=== PATIENT | female | born 1960 | race Caucasian/White ===

== ENCOUNTER → 2016-12-22 | Day surgery (SDC) | payer BC ==
[~2016-12-22] MED LIST: Lactated Ringers 1,000 ML IV SCH; Propofol 200 MG/20 ML SDV IV ONE
[2016-12-22 12:35] VITALS: BP 146/87
--- NOTE | 2016-12-25 07:53 | OR ---
DATE OF OPERATION: 12/22/2016 PREOPERATIVE DIAGNOSIS: HISTORY OF POLYPS. POSTOPERATIVE DIAGNOSIS: HISTORY OF POLYPS. SURGEON: Jeffrey Sequeira MD PROCEDURE: FULL-LENGTH COLONOSCOPY WITH POLYP REMOVAL X1. 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 BODY AFTER ALLERGIES: COMPLICATIONS: None. SPECIMEN: Small rectal hyperplastic polyp. FINDINGS: 1. Full-length colonoscopy. 2. Rectal polyp, hyperplastic. RECOMMENDATIONS: Follow up colonoscopy in 10 years. INDICATIONS: The patient has had a prior history of polyps. She had a followup 5 years ago and had a polyp removed. She is due for routine follow up at this time. DESCRIPTION OF PROCEDURE: The patient was prepped and draped, placed in the left lateral decubitus position. A lubricated Olympus colonoscope was inserted and easily advanced to the cecum. Direct visualization of the ileocecal valve and appendiceal orifice was accomplished. The bowel prep was fine. Upon withdrawal of the scope, the cecum, ascending, transverse, and descending colon were completely benign throughout the entire sigmoid and rectosigmoid junction. The patient had no polyps, mass, ulceration, or bleeding sites. No vascular abnormalities or signs of colitis. The rectal vault appeared benign. Retroflexion showed a small hyperplastic polyp in the perianal region. We were able to remove it with a cold forceps biopsy x2 in its entirety. Resolution of bleeding was spontaneous. Air was then suctioned, scope was removed without complication. VINNIE/ASH /[id number]
== END ==
LOC: CC.SDS 10:49
PROVIDERS: ATTEND Family Medicine
DX: Z12.11 Encounter for screening for malignant neoplasm of colon (principal); Z86.010 Personal history of colon polyps; J45.909 Unspecified asthma, uncomplicated; I63.9 Cerebral infarction, unspecified; I10 Essential (primary) hypertension; E03.9 Hypothyroidism, unspecified; Z88.8 Allergy status to other drugs, medicaments and biological substances; Z91.040 Latex allergy status; Z79.82 Long term (current) use of aspirin; Z79.899 Other long term (current) drug therapy; Z87.891 Personal history of nicotine dependence; Z90.49 Acquired absence of other specified parts of digestive tract; Z90.710 Acquired absence of both cervix and uterus; Z98.890 Other specified postprocedural states; Z72.0 Tobacco use
CPT/HCPCS: 45380; J2704; J7120

== ENCOUNTER → 2018-09-20 | Day surgery (SDC) | payer BC ==
[~2018-09-20] MED LIST changes: +Glycopyrrolate 0.2 MG/ML SDV IVPUSH ONE
[2018-09-20 12:51] VITALS: BP 119/71
--- NOTE | 2018-09-20 14:26 | OR ---
DATE OF OPERATION: 09/20/2018 PREOPERATIVE DIAGNOSIS: PERSISTENT COUGH, HISTORY OF GASTROESOPHAGEAL REFLUX DISEASE. POSTOPERATIVE DIAGNOSIS: 1. HIATAL HERNIA WITH SPONTANEOUS REFLUX. 2. FUNDAL GASTRITIS. SURGEON: Jeffrey Sequeira MD PROCEDURE: FULL-LENGTH EGD WITH BIOPSIES X2, PATY. 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 COMPLICATIONS: None. SPECIMEN: 1. Fundal biopsy x2. 2. Antral PATY. FINDINGS: 1. Full-length EGD. 2. Mpti-am-qaeusesy sized hiatal hernia with spontaneous reflux. No distal esophagitis, stricturing, ulceration, or Herndon's changes. 3. Fundal gastritis. RECOMMENDATIONS: We will put her on proton pump therapy and monitor clinically. Biopsies are pending. INDICATIONS: The patient has a history of asthma. She is having a hard time controlling it and does admit to a lot of nighttime symptoms with recumbency. We elected to proceed with EGD. DESCRIPTION OF PROCEDURE: The patient was prepped and draped, placed in the left lateral decubitus position. A lubricated Olympus gastroscope was inserted over a bit, advanced to cricopharyngeus area, and easily intubated into the esophagus. The esophageal lining was benign in its entire course. The Z-line was crisp and sharp at around 35 cm. There was a mild-sized hiatal hernia present with spontaneous reflux seen. No distal esophagitis, stricturing, ulceration, or Herndon's changes visualized. The scope was advanced into the stomach, through the pylorus, and into the second portion of the duodenum. This and the duodenal bulb were benign. The scope was brought back into the stomach and retroflexed. The upper fundus and cardia were easily visualized. The hernia was seen from below. The upper fundus and into its main body showed signs of chronic gastritis changes. We did 2 biopsies of that. The rest of the fundus and antrum were unremarkable. I found no other polyps, masses, ulcerations, or signs of peptic ulcer disease. A CLOtest was obtained. Air was suctioned, scope removed without complication. VINNIE/ASH /[id number]
== END ==
LOC: CC.SDS 10:34
PROVIDERS: ATTEND Family Medicine
DX: K21.9 Gastro-esophageal reflux disease without esophagitis (principal); K44.9 Diaphragmatic hernia without obstruction or gangrene; K29.70 Gastritis, unspecified, without bleeding; I10 Essential (primary) hypertension; J45.909 Unspecified asthma, uncomplicated; E03.9 Hypothyroidism, unspecified; I69.320 Aphasia following cerebral infarction; E78.5 Hyperlipidemia, unspecified; Z87.891 Personal history of nicotine dependence; Z79.82 Long term (current) use of aspirin; Z79.899 Other long term (current) drug therapy; Z88.5 Allergy status to narcotic agent; Z91.040 Latex allergy status
CPT/HCPCS: 43239; 87081; J2704; J3490; J7120

== ENCOUNTER 2021-06-16 21:25 | Observation (INO) | payer BC ==
[2021-06-16] MEDS ORDERED: Ondansetron 4 MG/2 ML SDV IVPUSH STA (21:37)
--- NOTE | 2021-06-16 21:46 | EDM.PDOC ---
ED HPI GENERAL MEDICAL PROBLEM - General Chief Complaint: General Stated Complaint: dizzy/nausea/vomiting/diarrhea Time Seen by Provider: 06/16/21 21:35 Source of Information: Reports: Patient, EMS History Limitations: Reports: No Limitations - History of Present Illness INITIAL COMMENTS - FREE TEXT/NARRATIVE: This is a 60-year-old female that presents to the emergency department via [facility]. Patient had onset of dizziness at around 5:30 PM with associated nausea and vomiting. Patient states that she had gotten home from work around 2 PM ate some candy, then laid down for nap. Upon awakening from the nap she had this dizziness. Describes the dizziness like she is spinning. Denies shortness of breath or chest pain. Patient states that she has had one episode of diarrhea as well this evening. Denies blood or black tarry stools. Denies any dysuria. States she had a similar episode in which she was diagnosed with vertigo several years ago and was treated with meclizine at that time. Denies abdominal pain. States she was feeling well earlier today prior to laying down for her nap. Denies any unilateral weakness, slurred speech, or other stroke symptoms. Has had the COVID vaccines as well as a booster. She was tested for COVID at her place of work today which was negative. Patient states that she has tried no home remedies or krxy-oqs-wnikjmz medications today. Onset: Sudden Onset Date: 06/16/21 Onset Time: 17:30 Duration: Constant Location: Reports: Head Quality: Reports: Other (Dizziness) Worsens with: Reports: Movement - Related Data Allergies Allergy/AdvReac Type Severity Reaction Status Date / Time cefixime [From Suprax] Allergy Severe Anaphylactic Verified 06/16/21 22:37 Shock latex Allergy Severe Anaphylactic Verified 06/16/21 22:37 Shock morphine Allergy Severe Anaphylactic Verified 06/16/21 22:37 Shock codeine Allergy Rash Verified 06/16/21 22:37 moxifloxacin HCl Allergy Facial Verified 06/16/21 22:37 [From Avelox] Swelling Home Meds: Home Meds Acetaminophen [Tylenol Extra Strength] 1,500 mg PO Q6H PRN 07/24/13 [History] Albuterol [Ventolin HFA] 1 - 2 puff INH Q4H PRN 07/24/13 [History] Levothyroxine 150 mcg PO DAILY 07/24/13 [History] Lisinopril/Hydrochlorothiazide [Zestoretic 20-25 MG] 0.5 - 1 tab PO DAILY 07/24/13 [History] Potassium 2 - 3 tab PO DAILY 07/24/13 [History] Rosuvastatin [Crestor] 10 mg PO DAILY 07/24/13 [History] Aspirin 81 mg PO DAILY 12/21/16 [History] Fluticasone/Salmeterol [Advair Diskus 250-50] 1 puff INH BID 12/21/16 [History] Ibuprofen 800 mg PO Q6H PRN 12/21/16 [History] Lisinopril 10 mg PO BEDTIME 12/21/16 [History] Albuterol Sulfate 1 inh INH Q6H PRN 09/18/18 [History] valACYclovir [Valtrex] 1,000 mg PO DAILY 06/16/21 [History] Past Medical History Cardiovascular History: Reports: High Cholesterol, Hypertension Respiratory History: Reports: Asthma, SOB 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: Dysfunctional Uterine Bleeding, Fibroids Musculoskeletal History: Reports: Osteoarthritis Neurological History: Reports: Concussion Endocrine/Metabolic History: Reports: Hypoparathyroidism, Hypothyroidism Dermatologic History: Reports: Eczema - Infectious Disease History Infectious Disease History: Reports: MRSA - Past Surgical History HEENT Surgical History: Reports: Eye Surgery, Other (See Below) Respiratory Surgical History: Reports: None GI Surgical History: Reports: Appendectomy Female Surgical History: Reports: Hysterectomy Endocrine Surgical History: Reports: None Neurological Surgical History: Reports: None Musculoskeletal Surgical History: Reports: Knee Replacement, Shoulder Surgery Other Musculoskeletal Surgeries/Procedures:: Right rotator cuff repair 2014, wrist arthroscopy, total knee 01/13/16 Social & Family History - Living Situation & Occupation Living situation: Reports: Single, with Significant Other Occupation: Employed ED ROS GENERAL - Review of Systems Review Of Systems: Comprehensive ROS is negative, except as noted in HPI. ED EXAM, GENERAL - Physical Exam Exam: See Below Exam Limited By: No Limitations General Appearance: Alert, WD/WN, Moderate Distress Eye Exam: Bilateral Eye: PERRL Ears: Normal External Exam, Normal Canal, Hearing Grossly Normal, Normal TMs Nose: Normal Inspection, Normal Mucosa, No Blood Throat/Mouth: Normal Inspection, Normal Gums, Normal Oropharynx, Normal Voice, No Airway Compromise, Other (Mucous membranes moist) Head: Atraumatic, Normocephalic Neck: Normal Inspection, Supple, Non-Tender Respiratory/Chest: No Respiratory Distress, Lungs Clear Cardiovascular: Normal Peripheral Pulses, Regular Rate, Rhythm, No Gallop, No Mu rmur, No Rub GI/Abdominal: Normal Bowel Sounds, Soft, Non-Tender, No Organomegaly, No Distention (Female) Exam: Deferred Rectal (Female) Exam: Deferred Extremities: Normal Inspection, No Pedal Edema Neurological: Alert, Oriented, Normal Cognition Psychiatric: Normal Affect, Normal Mood Skin Exam: Warm, Dry, Intact, Pallor Lymphatic: No Adenopathy Course - Vital Signs Last Recorded V/S: Last Vital Signs Temp 97.6 F 06/16/21 21:25 Pulse 71 06/16/21 21:25 Resp 20 06/16/21 21:25 BP 157/90 H 06/16/21 21:25 Pulse Ox 95 06/16/21 21:25 - Orders/Labs/Meds Orders: Active Orders 24 hr Category Date Time Status Chest 1V Frontal [CR] Stat Exams 06/16/21 22:08 Taken Head wo Cont [CT] Routine Exams 06/16/21 Taken CULTURE URINE [RM] Stat Lab 06/16/21 21:34 Received Labs: Laboratory Tests 06/16/21 06/16/21 06/16/21 Range/Units 21:34 21:44 21:44 WBC 7.0 (4.0-11.0) 10^3/uL RBC 5.16 (4.00-5.50) x10^6/uL Hgb 15.4 (12.0-16.0) g/dL Hct 44.9 (37.0-47.0) % MCV 87.0 (83.0-97.0) fL MCH 29.8 (27.0-32.0) pg MCHC 34.3 (32.0-36.0) g/dL RDW Coeff of Ej 13.8 (11.0-15.0) % Plt Count 230 (150-400) 10^3/uL Immature Gran % (Auto) 0.1 (0.0-4.9) % Neut % (Auto) 74.5 H (41-71) % Lymph % (Auto) 15.1 L (24-44) % [facility] % (Auto) 8.5 (0-10) % Eos % (Auto) 1.4 (0-6) % Baso % (Auto) 0.4 (0-1) % Neut # (Auto) 5.17 (1.80-8.00) x10^3/uL Lymph # (Auto) 1.05 (0.60-5.00) 10^3/uL [facility] # (Auto) 0.59 (0.00-1.50) 10^3/uL Eos # (Auto) 0.10 (0.00-1.50) 10^3/uL Baso # (Auto) 0.03 (0.00-0.50) 10^3/uL Immature Gran # (Auto) 0.01 (0.00-0.49) 10^3/uL Sodium 138 (136-145) mEq/L Potassium 4.8 D (3.5-5.0) mEq/L Chloride 103 (98-106) mEq/L Carbon Dioxide 26 (21-32) mmol/L BUN 20 H D (7-18) mg/dL Creatinine 1.0 (0.6-1.0) mg/dL Est Cr Clr Drug Dosing TNP Estimated GFR (MDRD) 57 L (>=60) mL/min Glucose 173 H D (75-99) mg/dL Calcium 9.6 (8.4-10.1) mg/dL Total Bilirubin 0.9 (0.0-1.0) mg/dL AST 23 (15-37) U/L ALT 65 (12-78) U/L Alkaline Phosphatase 79 (46-116) U/L Troponin I High Sens 7.4 (<=51) pg/mL C-Reactive Protein < 0.2 L (0.2-0.8) mg/dL Total Protein 7.5 (6.4-8.2) g/dL Albumin 4.5 (3.4-5.0) g/dL Urine Color Yellow (YELLOW) Urine Appearance Slightly cloudy (CLEAR) Urine pH 5.5 (4.5-8.0) Ur Specific [place] >= 1.030 H (1.003-1.020) Urine Protein 100 H (NEGATIVE) mg/dL Urine Glucose (UA) Negative (NEGATIVE) mg/dL Urine Ketones Negative (NEGATIVE) mg/dL Urine Occult Blood Negative (NEGATIVE) Urine Nitrite Negative (NEGATIVE) Urine Bilirubin Negative (NEGATIVE) Urine Urobilinogen 0.2 (0.2-1.0) EU/dL Ur Leukocyte Esterase Small H (NEGATIVE) Urine RBC 0-5 (0-5) /HPF Urine WBC 50-75 H (0-5) /HPF Ur Squamous Epith Cells Few H (NOT SEEN) /HPF Urine Bacteria Moderate H (NOT SEEN) /HPF Urine Mucus Moderate H (NOT SEEN) /HPF Urinalysis Comment SARS CoV-2 RNA Rapid ETELVINA (NEGATIVE) 06/16/21 Range/Units 22:38 WBC (4.0-11.0) 10^3/uL RBC (4.00-5.50) x10^6/uL Hgb (12.0-16.0) g/dL Hct (37.0-47.0) % MCV (83.0-97.0) fL MCH (27.0-32.0) pg MCHC (32.0-36.0) g/dL RDW Coeff of Ej (11.0-15.0) % Plt Count (150-400) 10^3/uL Immature Gran % (Auto) (0.0-4.9) % Neut % (Auto) (41-71) % Lymph % (Auto) (24-44) % [facility] % (Auto) (0-10) % Eos % (Auto) (0-6) % Baso % (Auto) (0-1) % Neut # (Auto) (1.80-8.00) x10^3/uL Lymph # (Auto) (0.60-5.00) 10^3/uL [facility] # (Auto) (0.00-1.50) 10^3/uL Eos # (Auto) (0.00-1.50) 10^3/uL Baso # (Auto) (0.00-0.50) 10^3/uL Immature Gran # (Auto) (0.00-0.49) 10^3/uL Sodium (136-145) mEq/L Potassium (3.5-5.0) mEq/L Chloride (98-106) mEq/L Carbon Dioxide (21-32) mmol/L BUN (7-18) mg/dL Creatinine (0.6-1.0) mg/dL Est Cr Clr Drug Dosing Estimated GFR (MDRD) (>=60) mL/min Glucose (75-99) mg/dL Calcium (8.4-10.1) mg/dL Total Bilirubin (0.0-1.0) mg/dL AST (15-37) U/L ALT (12-78) U/L Alkaline Phosphatase (46-116) U/L Troponin I High Sens (<=51) pg/mL C-Reactive Protein (0.2-0.8) mg/dL Total Protein (6.4-8.2) g/dL Albumin (3.4-5.0) g/dL Urine Color (YELLOW) Urine Appearance (CLEAR) Urine pH (4.5-8.0) Ur Specific [place] (1.003-1.020) Urine Protein (NEGATIVE) mg/dL Urine Glucose (UA) (NEGATIVE) mg/dL Urine Ketones (NEGATIVE) mg/dL Urine Occult Blood (NEGATIVE) Urine Nitrite (NEGATIVE) Urine Bilirubin (NEGATIVE) Urine Urobilinogen (0.2-1.0) EU/dL Ur Leukocyte Esterase (NEGATIVE) Urine RBC (0-5) /HPF Urine WBC (0-5) /HPF Ur Squamous Epith Cells (NOT SEEN) /HPF Urine Bacteria (NOT SEEN) /HPF Urine Mucus (NOT SEEN) /HPF Urinalysis Comment SARS CoV-2 RNA Rapid ETELVINA Negative (NEGATIVE) Meds: Medications Discontinued Medications Generic Name Dose Route Start Last Admin Trade Name Freq PRN Reason Stop Dose Admin Meclizine HCl 25 mg 06/16/21 22:01 06/16/21 22:08 Meclizine 12.5 Mg Tab PO 06/16/21 22:02 25 mg NOW STA Administration Ondansetron HCl 4 mg 06/16/21 21:37 06/16/21 21:46 Ondansetron 4 Mg/2 Ml Sdv IVPUSH 06/16/21 21:38 4 mg NOW STA Administration - Re-Assessments/Exams Free Text/Narrative Re-Assessment/Exam: This is a 60-year-old female patient that presented via [facility] with onset of dizziness with associated nausea and vomiting. Labs obtained in cluding a CBC, CMP, CRP, troponin, UA, and Covid. CBC and CRP unremarkable. CMP shows an elevated glucose. UA showed's with gravity greater than 1.03. Covid negative. A chest x-ray was completed and reviewed with no acute findings. CT was obtained and compared to a CT from 2016 with no acute findings. Radiologist called and confirmed CT findings with no acute infarcts or hemorrhage. Plan to admit to observation for continued dizziness, nausea, and vomiting. With the findings of the specific gravity and nausea and vomiting we will hydrate with normal saline. Patient did receive Zofran 4 mg IV push for nausea in the emergency department. Also received 25 mg of meclizine. Patient has had continued dizziness upon any movement. Departure - Departure Time of Disposition: 22:41 Disposition: Refer to Observation Condition: Fair Clinical Impression: Vertigo Nausea & vomiting Qualifiers: Vomiting type: unspecified Qualified Code(s): R11.2 - Nausea with vomiting, u nspecified - Discharge Information *PRESCRIPTION DRUG MONITORING PROGRAM REVIEWED*: Not Applicable *COPY OF PRESCRIPTION DRUG MONITORING REPORT IN PATIENT AMADOU: Not Applicable Forms: ED Department Discharge Additional Instructions: Admit observation Sepsis Event Note (ED) - Focused Exam Vital Signs: Vital Signs Temp Pulse Resp BP Pulse Ox 06/16/21 21:25 97.6 F 71 20 157/90 H 95 - Problem List & Annotations (1) Vertigo SNOMED Code(s): 555617485 Code(s): R42 - DIZZINESS AND GIDDINESS Status: Acute (2) Nausea & vomiting SNOMED Code(s): 24851426 Code(s): R11.2 - NAUSEA WITH VOMITING, UNSPECIFIED Status: Acute Qualifiers: Vomiting type: unspecified Qualified Code(s): R11.2 - Nausea with vomiting, unspecified - Problem List Review Problem List Initiated/Reviewed/Updated: Yes - My Orders Last 24 Hours: My Active Orders 06/16/21 21:34 CULTURE URINE [RM] Stat - Assessment/Plan Admission H&P: Please use this note as an admission H&P Last 24 Hours: My Active Orders 06/16/21 21:34 CULTURE URINE [RM] Stat
[2021-06-16 21:55] LABS: CHLORIDE,CL 103 mEq/L (98-106); SODIUM,NA 138 mEq/L (136-145)
[2021-06-16] MEDS ORDERED: Meclizine 12.5 MG Tab PO STA (22:01)
[2021-06-16] MEDS ORDERED: Ondansetron 4 MG/2 ML SDV IV PRN (23:32)
[2021-06-16] MEDS ORDERED: Acetaminophen 325 MG Tab PO PRN (23:32)
[2021-06-16] MEDS ORDERED: Scopolamine 1.5 MG Transdermal Patch TRDERM ONE (23:38)
[2021-06-16] MEDS ORDERED: Sodium Chloride 0.9% 1,000 ML IV SCH (23:45)
[2021-06-17 07:45] VITALS: BP 138/86; PULSE 74
[2021-06-17 07:47] LABS: CHLORIDE,CL 105 mEq/L (98-106); SODIUM,NA 139 mEq/L (136-145)
--- NOTE | 2021-06-17 15:40 | PCM.DCSUM1 ---
Discharge Summary - Hospital Course Free Text/Narrative:: This is a 60 year old female that was admitted last evening after sudden onset of dizziness with associated nausea and vomiting. Patient was admitted for IV fluids and treatment for vertigo. A CT scan of the head was negative for acute findings. CBC and BMP were unremarkable this morning. The UA from last evening was cultured and questionable UTI. The preliminary results were gram negative rods. Rocephin 1 gram IVP prior discharge and willl be treated with oral antibiotics. A scopolamine patch assisted in control of dizziness throughout the night. PT evaluated and provided treatment for vertigo. Patient states that she is feeling much improved following PT treatment. Denies any nausea or vomiting and the dizziness has improved. She feels that she is well enough to return home. Diagnosis: Stroke: No - Discharge Data Discharge Date: 06/17/21 Discharge Disposition: Home, Self-Care 01 Condition: Good - Referral to Home Health Primary Care Physician: Christophe Mancia HOME HEALTH CLINICAL SUPERVISOR - Discharge Diagnosis/Problem(s) (1) Vertigo SNOMED Code(s): 945474755 ICD Code: R42 - DIZZINESS AND GIDDINESS Status: Acute Priority: High Current Visit: No (2) Nausea & vomiting SNOMED Code(s): 96911532 ICD Code: R11.2 - NAUSEA WITH VOMITING, UNSPECIFIED Status: Acute Priority: Medium Current Visit: No Qualifiers: Vomiting type: unspecified Qualified Code(s): R11.2 - Nausea with vomiting, unspecified (3) UTI (urinary tract infection) SNOMED Code(s): 33834710 ICD Code: N39.0 - URINARY TRACT INFECTION, SITE NOT SPECIFIED Status: Acute Priority: Medium Current Visit: Yes - Patient Summary/Data Consults: Consultations 06/16/21 23:32 PT Evaluation and Treatment [CONS] Routine - Discharge Plan *PRESCRIPTION DRUG MONITORING PROGRAM REVIEWED*: Not Applicable *COPY OF PRESCRIPTION DRUG MONITORING REPORT IN PATIENT AMADOU: Not Applicable Home Medications: Home Meds Acetaminophen [Tylenol Extra Strength] 1,500 mg PO Q6H PRN 07/24/13 [History] Albuterol [Ventolin HFA] 1 - 2 puff INH Q4H PRN 07/24/13 [History] Levothyroxine 150 mcg PO DAILY 07/24/13 [History] Lisinopril/Hydrochlorothiazide [Zestoretic 20-25 MG] 0.5 - 1 tab PO DAILY 07/24/13 [History] Potassium 2 - 3 tab PO DAILY 07/24/13 [History] Rosuvastatin [Crestor] 10 mg PO DAILY 07/24/13 [History] Aspirin 81 mg PO DAILY 12/21/16 [History] Fluticasone/Salmeterol [Advair Diskus 250-50] 1 puff INH BID 12/21/16 [History] Ibuprofen 800 mg PO Q6H PRN 12/21/16 [History] Lisinopril 10 mg PO BEDTIME 12/21/16 [History] Albuterol Sulfate 1 inh INH Q6H PRN 09/18/18 [History] valACYclovir [Valtrex] 1,000 mg PO DAILY 06/16/21 [History] Nitrofurantoin Monohyd/M-Cryst [Macrobid 100 mg Capsule] 100 mg PO BID #6 capsule 06/17/21 [Rx] Scopolamine [Transderm-Scop] 1 patch TD Q3D #10 patch 06/17/21 [Rx] Patient Handouts: Vertigo Forms: ED Department Discharge Referrals: Christophe Mancia NP [Primary Care Provider] - - Discharge Summary/Plan Comment DC Time >30 min.: No Total # of Minutes for Discharge Time: 25 - General Info Date of Service: 06/17/21 Admission Dx/Problem (Free Text: Vertigo Nausea and Vomiting Functional Status: Reports: Ambulating, Urinating - Review of Systems General: Denies: Fever, Weakness HEENT: Denies: Headaches Pulmonary: Denies: Shortness of Breath, Cough Cardiovascular: Denies: Chest Pain Gastrointestinal: Denies: Abdominal Pain, Nausea, Vomiting Genitourinary: Reports: No Symptoms Musculoskeletal: Reports: No Symptoms Skin: Reports: No Symptoms Neurological: Reports: Dizziness (improved) Psychiatric: Denies: Confusion - Patient Data Vitals - Most Recent: Last Vital Signs Temp 98 F 06/17/21 07:45 Pulse 74 06/17/21 07:45 Resp 18 06/17/21 07:45 BP 138/86 06/17/21 07:45 Pulse Ox 97 06/17/21 07:45 Weight - Most Recent: 219 lb Lab Results - Last 24 hrs: Laboratory Results - last 24 hr 12/23/21 12/23/21 12/23/21 Range/Units 21:34 21:44 21:44 WBC 7.0 (4.0-11.0) 10^3/uL RBC 5.16 (4.00-5.50) x10^6/uL Hgb 15.4 (12.0-16.0) g/dL Hct 44.9 (37.0-47.0) % MCV 87.0 (83.0-97.0) fL MCH 29.8 (27.0-32.0) pg MCHC 34.3 (32.0-36.0) g/dL RDW Coeff of Ej 13.8 (11.0-15.0) % Plt Count 230 (150-400) 10^3/uL Immature Gran % (Auto) 0.1 (0.0-4.9) % Neut % (Auto) 74.5 H (41-71) % Lymph % (Auto) 15.1 L (24-44) % [place] % (Auto) 8.5 (0-10) % Eos % (Auto) 1.4 (0-6) % Baso % (Auto) 0.4 (0-1) % Neut # (Auto) 5.17 (1.80-8.00) x10^3/uL Lymph # (Auto) 1.05 (0.60-5.00) 10^3/uL [place] # (Auto) 0.59 (0.00-1.50) 10^3/uL Eos # (Auto) 0.10 (0.00-1.50) 10^3/uL Baso # (Auto) 0.03 (0.00-0.50) 10^3/uL Immature Gran # (Auto) 0.01 (0.00-0.49) 10^3/uL Sodium 138 (136-145) mEq/L Potassium 4.8 D (3.5-5.0) mEq/L Chloride 103 (98-106) mEq/L Carbon Dioxide 26 (21-32) mmol/L BUN 20 H D (7-18) mg/dL Creatinine 1.0 (0.6-1.0) mg/dL Est Cr Clr Drug Dosing TNP Estimated GFR (MDRD) 57 L (>=60) mL/min Glucose 173 H D (75-99) mg/dL Calcium 9.6 (8.4-10.1) mg/dL Total Bilirubin 0.9 (0.0-1.0) mg/dL AST 23 (15-37) U/L ALT 65 (12-78) U/L Alkaline Phosphatase 79 (46-116) U/L Troponin I High Sens 7.4 (<=51) pg/mL C-Reactive Protein < 0.2 L (0.2-0.8) mg/dL Total Protein 7.5 (6.4-8.2) g/dL Albumin 4.5 (3.4-5.0) g/dL Urine Color Yellow (YELLOW) Urine Appearance Slightly cloudy (CLEAR) Urine pH 5.5 (4.5-8.0) Ur Specific [place] >= 1.030 H (1.003-1.020) Urine Protein 100 H (NEGATIVE) mg/dL Urine Glucose (UA) Negative (NEGATIVE) mg/dL Urine Ketones Negative (NEGATIVE) mg/dL Urine Occult Blood Negative (NEGATIVE) Urine Nitrite Negative (NEGATIVE) Urine Bilirubin Negative (NEGATIVE) Urine Urobilinogen 0.2 (0.2-1.0) EU/dL Ur Leukocyte Esterase Small H (NEGATIVE) Urine RBC 0-5 (0-5) /HPF Urine WBC 50-75 H (0-5) /HPF Ur Squamous Epith Cells Few H (NOT SEEN) /HPF Urine Bacteria Moderate H (NOT SEEN) /HPF Urine Mucus Moderate H (NOT SEEN) /HPF Urinalysis Comment SARS CoV-2 RNA Rapid ETELVINA (NEGATIVE) 06/16/21 06/17/21 06/17/21 Range/Units 22:38 05:11 05:11 WBC 7.9 (4.0-11.0) 10^3/uL RBC 4.81 (4.00-5.50) x10^6/uL Hgb 14.4 (12.0-16.0) g/dL Hct 41.9 (37.0-47.0) % MCV 87.1 (83.0-97.0) fL MCH 29.9 (27.0-32.0) pg MCHC 34.4 (32.0-36.0) g/dL RDW Coeff of Ej 13.8 (11.0-15.0) % Plt Count 238 (150-400) 10^3/uL Immature Gran % (Auto) 0.1 (0.0-4.9) % Neut % (Auto) 76.5 H (41-71) % Lymph % (Auto) 13.6 L (24-44) % [place] % (Auto) 8.9 (0-10) % Eos % (Auto) 0.5 (0-6) % Baso % (Auto) 0.4 (0-1) % Neut # (Auto) 6.02 (1.80-8.00) x10^3/uL Lymph # (Auto) 1.07 (0.60-5.00) 10^3/uL [place] # (Auto) 0.70 (0.00-1.50) 10^3/uL Eos # (Auto) 0.04 (0.00-1.50) 10^3/uL Baso # (Auto) 0.03 (0.00-0.50) 10^3/uL Immature Gran # (Auto) 0.01 (0.00-0.49) 10^3/uL Sodium 139 (136-145) mEq/L Potassium 3.7 D (3.5-5.0) mEq/L Chloride 105 (98-106) mEq/L Carbon Dioxide 27 (21-32) mmol/L BUN 16 (7-18) mg/dL Creatinine 0.8 (0.6-1.0) mg/dL Est Cr Clr Drug Dosing 68.13 Estimated GFR (MDRD) > 60 (>=60) mL/min Glucose 98 D (75-99) mg/dL Calcium 8.7 (8.4-10.1) mg/dL Total Bilirubin (0.0-1.0) mg/dL AST (15-37) U/L ALT (12-78) U/L Alkaline Phosphatase (46-116) U/L Troponin I High Sens (<=51) pg/mL C-Reactive Protein (0.2-0.8) mg/dL Total Protein (6.4-8.2) g/dL Albumin (3.4-5.0) g/dL Urine Color (YELLOW) Urine Appearance (CLEAR) Urine pH (4.5-8.0) Ur Specific [place] (1.003-1.020) Urine Protein (NEGATIVE) mg/dL Urine Glucose (UA) (NEGATIVE) mg/dL Urine Ketones (NEGATIVE) mg/dL Urine Occult Blood (NEGATIVE) Urine Nitrite (NEGATIVE) Urine Bilirubin (NEGATIVE) Urine Urobilinogen (0.2-1.0) EU/dL Ur Leukocyte Esterase (NEGATIVE) Urine RBC (0-5) /HPF Urine WBC (0-5) /HPF Ur Squamous Epith Cells (NOT SEEN) /HPF Urine Bacteria (NOT SEEN) /HPF Urine Mucus (NOT SEEN) /HPF Urinalysis Comment SARS CoV-2 RNA Rapid ETELVINA Negative (NEGATIVE) CATHY Results - Last 24 hrs: Microbiology 06/16/21 21:34 Urine Culture - Preliminary Urine, Voided Gram Negative Rods Med Orders - Current: Current Medications Acetaminophen (Acetaminophen 325 Mg Tab) 650 mg PO Q4H PRN PRN Reason: Pain (Mild 1-3)/fever Last Admin: 06/17/21 00:21 Dose: 650 mg Documented by: Sodium Chloride (Normal Saline) 1,000 mls @ 100 mls/hr IV ASDIRECTED SIVAN Last Admin: 06/17/21 00:22 Dose: 100 mls/hr Documented by: Miscellaneous Information (Remove Scopolamine Patch) 1 ea TRDERM ONETIME ONE Stop: 06/19/21 23:46 Ondansetron HCl (Ondansetron 4 Mg/2 Ml Sdv) 4 mg IV Q4H PRN PRN Reason: Nausea/Vomiting Last Admin: 06/17/21 07:43 Dose: 4 mg Documented by: Discontinued Medications Meclizine HCl (Meclizine 12.5 Mg Tab) 25 mg PO NOW STA Stop: 06/16/21 22:02 Last Admin: 06/16/21 22:08 Dose: 25 mg Documented by: Ondansetron HCl (Ondansetron 4 Mg/2 Ml Sdv) 4 mg IVPUSH NOW STA Stop: 06/16/21 21:38 Last Admin: 06/16/21 21:46 Dose: 4 mg Documented by: Scopolamine (Scopolamine 1.5 Mg Transdermal Patch) 1.5 mg TRDERM ONETIME ONE Stop: 06/16/21 23:39 Last Admin: 06/17/21 00:21 Dose: 1.5 mg Documented by: - Exam General: Reports: Alert, Oriented, No Acute Distress HEENT: Reports: Pupils Equal, Pupils Reactive Neck: Reports: Supple, Trachea Midline. Denies: Lymphadenopathy Lungs: Reports: Clear to Auscultation, Normal Respiratory Effort Cardiovascular: Reports: Regular Rate, Regular Rhythm, No Murmurs. Denies: Gallops, Rubs GI/Abdominal Exam: Normal Bowel Sounds, Soft, Non-Tender (Female) Exam: Deferred Rectal (Female) Exam: Deferred Back Exam: Reports: Normal Inspection, Full Range of Motion Extremities: Normal Inspection, Normal Range of Motion, No Pedal Edema Skin: Reports: Warm, Dry, Intact Neurological: Reports: No New Focal Deficit Psy/Mental Status: Reports: Alert, Normal Affect, Normal Mood
[2021-06-17] MEDS ORDERED: Scopolamine 1.5 MG Transdermal Patch TRDERM PRN (15:48)
[2021-06-17] MEDS ORDERED: Take Home: Nitrofurantoin Monohydrate/Macrocrystalline 100 MG, 2 Cap Pack PO ONE ×2 (15:50→16:01)
[2021-06-17] MEDS ORDERED: cefTRIAXone 1 GM Vial IVPUSH ONE (15:51)
== END 2021-06-17 16:50 | disposition home or self-care (01) ==
LOC: CC.ED 21:25 → UNDOADMOB 21:26 → CC.MS 21:26 → UNDODISOB 06-17 16:50
PROVIDERS: ADMIT Nurse Practitioner Family; ATTEND Family Medicine
DX: R42 Dizziness and giddiness (principal); R11.2 Nausea with vomiting, unspecified; N39.0 Urinary tract infection, site not specified; Z79.899 Other long term (current) drug therapy; Z79.82 Long term (current) use of aspirin; Z88.5 Allergy status to narcotic agent; Z91.040 Latex allergy status; Z88.8 Allergy status to other drugs, medicaments and biological substances; Z98.890 Other specified postprocedural states; Z20.822 Contact with and (suspected) exposure to COVID-19
CPT/HCPCS: 36415; 70450; 71045; 80048; 80053; 81001; 84484; 85025; 86140; 87086; 87088; 87186; 96374; 96376; 97112-GP; 97161-GP; 99285-25; A9270-GY; G0378; J2405; J7030; U0002